=== PATIENT | male | born 1960 | race Caucasian/White ===

== ENCOUNTER 2017-03-09 14:22 | Inpatient (IN) | payer OTHER ==
[2017-03-09 16:04] VITALS: BMI 26.4
--- NOTE | 2017-03-09 17:56 | HP ---
Admission ROS S - [facility] Chief Complaint: I WANT TO GO TO REHAB Allergies/Adverse Reactions: Allergies Allergy/AdvReac Type Severity Reaction Status Date / Time lorazepam AdvReac Severe HEADACHE Verified 03/09/17 16:44 trazodone AdvReac Severe HEADACHE Verified 03/09/17 16:44 Unclassified Drug AdvReac Severe HEADACHE Verified 03/09/17 16:44 boogie Allergy Severe Rash Uncoded 03/09/17 16:44 mendez Allergy Severe Rash Uncoded 03/09/17 16:44 liver Allergy Severe Rash Uncoded 03/09/17 16:44 veal Allergy Severe Rash Uncoded 03/09/17 16:44 History of Present Illness: 56 YEARS OLD MALE WITH LONG HISTORY OF COCAINE NICOTINE DEPENDENCE HAS ASTHMA ACID REFLUX ARTHRITIS OF THE BOTH KNEES, AND DEPRESSION, GASTRIC BY PASS 2016 IS ADMITTED TO REHAB Exam Limitations: No Limitations - Ebola screening Have you traveled outside of the country in the last 21 days: No Have you had contact with anyone from an Ebola affected area: No Have you been sick,other than usual withdrawal symptoms: No Do you have a fever: No - Review of Systems Constitutional: No Symptoms Reported EENT: reports: Other (EYE GLASSES) Respiratory: reports: No Symptoms reported Cardiac: reports: No Symptoms Reported GI: reports: Indigestion : reports: No Symptoms Reported Musculoskeletal: reports: Muscle Weakness (BOTH KNEES) Integumentary: reports: No Symptoms Reported Neuro: reports: No Symptoms reported, Weakness (KNEES) Endocrine: reports: No Symptoms Reported Hematology: reports: No Symptoms Reported Psychiatric: reports: No Sypmtoms Reported, Judgement Intact, Mood/Affect Appropiate, Orientated x3 Other Systems: Reviewed and Negative Patient History - Patient Medical History Hx Anemia: Yes (IRON DEFICIENCY ON IRON ) Hx Asthma: Yes Hx Chronic Obstructive Pulmonary Disease (COPD): No Hx Cancer: No Hx Cardiac Disorders: No Hx Congestive Heart Failure: No Hx Hypertension: No Hx Hypercholesterolemia: No Hx Pacemaker: No HX Cerebrovascular Accident: No Hx Seizures: No Hx Dementia: No Hx Diabetes: No Hx Gastrointestinal Disorders: No Hx Liver Disease: No Hx Genitourinary Disorders: No Hx Sexually Transmitted Disorders: No Hx Renal Disease (ESRD): No Hx Thyroid Disease: No Hx Human Immunodeficiency Virus (HIV): No Hx Hepatitis C: No Hx Depression: Yes Hx Suicide Attempt: No Hx Bipolar Disorder: No Hx Schizophrenia: No - Patient Surgical History Past Surgical History: Yes Hx Neurologic Surgery: No Hx Cataract Extraction: No Hx Cardiac Surgery: No Hx Lung Surgery: No Hx Breast Surgery: No Hx Breast Biopsy: No Hx Abdominal Surgery: Yes (left inguinal hernia repair in 02/06) Hx Appendectomy: No Hx Cholecystectomy: No Hx Genitourinary Surgery: No Hx Orthopedic Surgery: Yes (left knee surgery 1994) Other Surgical History: venous stripping left leg in 2000, RT. Foot surgery 2010 Anesthesia Reaction: No (2016 GASTRIC BYPASS JUL) - PPD History Previous Implant?: Yes Documented Results: Negative w/proof Implanted On Prior R Admission?: Yes Date: 10/01/14 Results: 0mm PPD to be Administered?: Yes - Smoking Cessation Smoking history: Current every day smoker Have you smoked in the past 12 months: Yes Aproximately how many cigarettes per day: 10 Cigars Per Day: 0 Hx Chewing Tobacco Use: No Initiated information on smoking cessation: Yes 'Breaking Loose' booklet given: 03/09/17 - Substance & Tx. History Hx Alcohol Use: Yes Hx Substance Use: Yes Substance Use Type: Alcohol, Cocaine Hx Substance Use Treatment: Yes (08/06/15-08/18/15) - Substances Abused Alcohol Route: Oral Frequency: Daily Amount used: BEER- 1 CASE Age of first use: 13 Date of Last Use: 03/08/17 Crack Route: Smoking Frequency: Daily Amount used: 5 BAGS Age of first use: 27 Date of Last Use: 03/08/17 Family Disease History - Family Disease History Family Disease History: Heart Disease: Father (), Respiratory: Sister ( asthma), Other: Father, Mother (asthma ) Admission Physical Exam [facility] - Vital Signs Vital Signs: Vital Signs - 24 hr 03/09/17 16:02 Temperature 96.7 F L Pulse Rate 54 L Respiratory 18 Rate Blood Pressure 112/66 - Physical General Appearance: Yes: No Apparent Distress, Nourished, Appropriately Dressed HEENTM: Yes: Hearing grossly Normal, Normal ENT Inspection, Normocephalic, Normal Voice Respiratory: Yes: Chest Non-Tender, Lungs Clear, Normal Breath Sounds, No Respiratory Distress, No Accessory Muscle Use Neck: Yes: Supple, Trachea in good position Breast: Yes: Breasts Symetrical Cardiology: Yes: Regular Rhythm, Regular Rate, S1, S2 Abdominal: Yes: Non Tender, Soft, Decreased BS Genitourinary: Yes: Within Normal Limits Back: Yes: Normal Inspection Musculoskeletal: Yes: Gait Steady (CANE + KNEE SLEVES) Extremities: Yes: Non-Tender Neurological: Yes: Fully Oriented, Alert, Normal Mood/Affect, Normal Response Integumentary: Yes: Warm Lymphatic: Yes: Within Normal Limits - Diagnostic (1) Asthma Current Visit: Yes Status: Chronic (2) GERD (gastroesophageal reflux disease) Current Visit: Yes Status: Chronic Qualifiers: Esophagitis presence: without esophagitis Qualified Code(s): K21.9 - Gastro-esophageal reflux disease without esophagitis (3) Nicotine dependence Current Visit: Yes Status: Acute Qualifiers: Nicotine product type: cigarettes Substance use status: in withdrawal Qualified Code(s): F17.213 - Nicotine dependence, cigarettes, with withdrawal (4) Cocaine dependence, uncomplicated Current Visit: Yes Status: Acute (5) Constipation Current Visit: Yes Status: Chronic Qualifiers: Constipation type: slow transit constipation Qualified Code(s): K59.01 - Slow transit constipation (6) Depression Current Visit: Yes Status: Suspected Qualifiers: Depression Type: dysthymia Qualified Code(s): F34.1 - Dysthymic disorder Cleared for Admission [facility] - Detox or Rehab [facility] Level of Care: Observation Bed Detox Regimen/Protocol: Not Applicable Claeared for Rehab Admission: Yes [facility] Breath Alcohol Content Breath Alcohol Content: 0 Urine Drug Screen - Results Drug Screen Negative: No Urine Drug Screen Results: CRYSTAL-Cocaine, TCA-Tricyclic Antidepress
[2017-03-09] MEDS ORDERED: MAGNESIUM CITRATE 300 ML BOTTLE PO PRN (18:03)
[2017-03-09] MEDS ORDERED: diphenhydrAMINE HCL 50 MG CAPSULE PO PRN (18:03)
[2017-03-09] MEDS ORDERED: LOPERAMIDE HCL 2 MG CAPSULE PO PRN (18:03)
[2017-03-09] MEDS ORDERED: MAG HYDROX/AL HYDROX/SIMETH 30 ML UNIT-DOSE CUP PO PRN (18:03)
[2017-03-09] MEDS ORDERED: MENTHOL/PHENOL 1 EACH UD MM PRN (18:03)
[2017-03-09] MEDS ORDERED: MAGNESIUM HYDROX 2400MG/30ML ORAL SUSPENSION 30 ML CUP PO PRN (18:03)
[2017-03-09] MEDS ORDERED: P-EPHED 60MG/TRIPROLIDI 2.5MG TABLET PO PRN (18:03)
[2017-03-09] MEDS ORDERED: guaiFENesin/D-METHORPHAN HB 10 ML UNIT-DOSE CUPS PO PRN (18:03)
[2017-03-09] MEDS ORDERED: ACETAMINOPHEN 325 MG TABLET (FP) PO PRN (18:03)
[2017-03-09] MEDS ORDERED: NICOTINE 14 MG/24 HOURS TOPICAL PATCH TD PRN (18:03)
[2017-03-09] MEDS ORDERED: TUBERCULIN PPD 5 TU/0.1ML VIAL ID ONE (20:16)
[2017-03-09] MEDS: QUEtiapine FUMARATE 300 MG TABLET PO SCH (21:10)
[2017-03-09] MEDS: THIAMINE HCL 100 MG TABLET (FP) PO SCH (21:11)
[2017-03-09] MEDS: hydrOXYzine PAMOATE 50 MG CAPSULE (FP) PO PRN (21:11)
[2017-03-09] MEDS: BUDESONIDE/FORMETEROL FUMARATE 80/4.5 mcg INHALER IH SCH (22:09)
[2017-03-09] MEDS: CLOTRIMAZOLE 1% CREAM 15 GM TUBE TP SCH (22:09)
[2017-03-09 23:52] LABS: URINE APPEARANCE CLOUDY; URINE BILIRUBIN NEGATIVE (NEGATIVE); URINE BLOOD NEGATIVE (NEGATIVE); URINE COLOR AMBER; URINE GLUCOSE (UA) NEGATIVE (NEGATIVE); URINE KETONE NEGATIVE (NEGATIVE); URINE LEUK ESTERASE NEGATIVE (NEGATIVE); URINE NITRITE NEGATIVE (NEGATIVE); URINE UROBILINOGEN NEGATIVE mg/dL (0.2-1.0)
[2017-03-09 23:57] LABS: URINE PROTEIN 1+ (NEGATIVE)
[2017-03-10 00:06] LABS: URINE BACTERIA RARE /hpf (NONE SEEN); URINE HYALINE CAST 13 /lpf; URINE MUCUS MANY; URINE RBC 4 /hpf (0-3); URINE WBC 19 /hpf (3-5)
[2017-03-10] MEDS: ALBUTEROL SO4 6.7 GM HFA INHALER IH PRN ×2 (05:18→21:16)
[2017-03-10] MEDS: PRENATAL VITAMINS W/ FOLIC ACID TABLET (FP) PO SCH (09:47)
[2017-03-10] MEDS: PANTOPRAZOLE 40 MG TABLET (FP) PO SCH (09:47)
[2017-03-10] MEDS: NICOTINE POLACRILEX 2 MG GUM BC PRN ×2 (09:48→21:17)
[2017-03-10] MEDS: DOCUSATE SODIUM 100 MG CAPSULE (FP) PO SCH (09:50)
[2017-03-10] MEDS: BUDESONIDE/FORMETEROL FUMARATE 80/4.5 mcg INHALER IH SCH ×2 (09:51→21:13)
[2017-03-10 10:29] LABS: MCH 30.9 pg (25.7-33.7); MCHC 33.2 g/dl (32.0-35.9); MEAN CELL VOLUME 93.1 fl (80-96); MEAN PLT VOLUME 7.7 fl (7.5-11.1); PLATELET COUNT 193 K/MM3 (134-434); RDW 13.9 % (11.9-15.9); WHITE BLOOD COUNT 3.8 K/mm3 (4.0-10.0)
[2017-03-10 10:56] LABS: ALBUMIN 2.8 g/dl (3.4-5.0); ANION GAP 10 (8-16); CALCIUM 8.3 mg/dL (8.5-10.1); CO2 24 mmol/L (21-32); GLUCOSE,RANDOM 238 mg/dL (74-106)
[2017-03-10 10:59] LABS: ALK PHOS 82 U/L (45-117); BILIRUBIN,TOTAL 0.5 mg/dL (0.2-1.0); CREATININE 1.1 mg/dL (0.7-1.3); SGOT/AST 9 U/L (15-37); SGPT/ALT 12 U/L (12-78); TOT PROT 5.8 g/dl (6.4-8.2)
[2017-03-10] MEDS: CLOTRIMAZOLE 1% CREAM 15 GM TUBE TP SCH ×2 (12:42→21:14)
[2017-03-10] MEDS: QUEtiapine FUMARATE 300 MG TABLET PO SCH (21:13)
[2017-03-10] MEDS: THIAMINE HCL 100 MG TABLET (FP) PO SCH (21:13)
[2017-03-10] MEDS: hydrOXYzine PAMOATE 50 MG CAPSULE (FP) PO PRN (21:16)
[2017-03-11] MEDS: BUDESONIDE/FORMETEROL FUMARATE 80/4.5 mcg INHALER IH SCH ×2 (09:56→21:17)
[2017-03-11] MEDS: PRENATAL VITAMINS W/ FOLIC ACID TABLET (FP) PO SCH (09:56)
[2017-03-11] MEDS: PANTOPRAZOLE 40 MG TABLET (FP) PO SCH (09:56)
[2017-03-11] MEDS: ALBUTEROL SO4 6.7 GM HFA INHALER IH PRN ×2 (09:56→21:14)
[2017-03-11] MEDS: DOCUSATE SODIUM 100 MG CAPSULE (FP) PO SCH (09:56)
[2017-03-11] MEDS: CLOTRIMAZOLE 1% CREAM 15 GM TUBE TP SCH ×2 (09:57→21:17)
[2017-03-11] MEDS: NICOTINE POLACRILEX 2 MG GUM BC PRN ×2 (09:58→21:17)
--- NOTE | 2017-03-11 13:58 | EKG ---
Test Reason : Blood Pressure : / mmHG Vent. Rate : 097 BPM Atrial Rate : 097 BPM P-R Int : 148 ms QRS Dur : 106 ms QT Int : 402 ms P-R-T Axes : 050 -31 021 degrees QTc Int : 510 ms NORMAL SINUS RHYTHM LEFT AXIS DEVIATION PROLONGED QT ABNORMAL ECG NO PREVIOUS ECGS AVAILABLE CLINICAL CORRELATION IS RECOMMENDED Confirmed by CRISTOPHER YAN, MICA ([id number]) on 03/11/2017 1:58:02 PM Referred By: Liudmila Nobles Confirmed By:MICA NICHOLAS MD
[2017-03-11] MEDS: QUEtiapine FUMARATE 300 MG TABLET PO SCH (21:15)
[2017-03-11] MEDS: THIAMINE HCL 100 MG TABLET (FP) PO SCH (21:15)
[2017-03-11] MEDS: hydrOXYzine PAMOATE 50 MG CAPSULE (FP) PO PRN (21:16)
[2017-03-12] MEDS: NICOTINE POLACRILEX 2 MG GUM BC PRN ×3 (06:41→14:21)
[2017-03-12] MEDS: ALBUTEROL SO4 6.7 GM HFA INHALER IH PRN ×3 (06:42→21:21)
[2017-03-12] MEDS: BUDESONIDE/FORMETEROL FUMARATE 80/4.5 mcg INHALER IH SCH ×2 (10:05→21:21)
[2017-03-12] MEDS: CLOTRIMAZOLE 1% CREAM 15 GM TUBE TP SCH ×2 (10:05→21:21)
[2017-03-12] MEDS: DOCUSATE SODIUM 100 MG CAPSULE (FP) PO SCH (10:05)
[2017-03-12] MEDS: PANTOPRAZOLE 40 MG TABLET (FP) PO SCH (10:05)
[2017-03-12] MEDS: PRENATAL VITAMINS W/ FOLIC ACID TABLET (FP) PO SCH (10:05)
--- NOTE | 2017-03-12 11:02 | HP ---
Psychiatrist Admission - Data Date of interview: 03/12/17 Admission source: [facility] Identifying data: This si one of the multiple admissions for this 56 yo H father of 25 yo son,resides alone ,supported by SSD. Medical History: Significant for BA,H/o Gastric bypass surgery in Jul 2016,lost 30 lbs. Psychiatric History: First contact with psychiatrist was in 1998 on recommendation of his substance use counselor.Patient was treated for depressed mood ,snxiety while in the Day rehabilitation program.His first and the only psychistric hosptalization was inabout 6 years ago to [facility] due to severe depression,drug use.Patient was dx with MDD.He started on seroquel (@00,300 up to 600 mg po hs) together with Wellbutrin,Vistaril.Sees psychiatrist at [facility].Current meds:Seroquel 600 mg po hs, Wellbutrin 300 mg po am and [id number] mg po hs. Physical/Sexual Abuse/Trauma History: denies Vital Signs: Vital Signs - 24 hr 03/12/17 03/12/17 03/12/17 00:30 03:27 07:00 Temperature 98.6 F Pulse Rate 85 Respiratory 18 18 18 Rate Blood Pressure 132/88 Allergies/Adverse Reactions: Allergies Allergy/AdvReac Type Severity Reaction Status Date / Time lorazepam AdvReac Severe HEADACHE Verified 03/09/17 16:44 trazodone AdvReac Severe HEADACHE Verified 03/09/17 16:44 Unclassified Drug AdvReac Severe HEADACHE Verified 03/09/17 16:44 boogie Allergy Severe Rash Uncoded 03/09/17 16:44 mendez Allergy Severe Rash Uncoded 03/09/17 16:44 liver Allergy Severe Rash Uncoded 03/09/17 16:44 veal Allergy Severe Rash Uncoded 03/09/17 16:44 Date of last physical exam: 03/09/17 Concur with the findings of this exam: Yes - Substance Abuse/Tx History Hx Alcohol Use: Yes (drinking since 13 yo,heavily since 21 yo) Hx Substance Use: Yes (crack/cocsine since [age] yo) Substance Use Type: Alcohol, Cocaine Hx Substance Use Treatment: Yes (longest time of abctinence 18 months in 2005) - Admission Criteria Previous failed treatment: Yes Poor recovery environment: Yes Comorbidities: Yes Lacks judgement: Yes Mental Status Exam - Mental Status Exam Alert and Oriented to: Time Cognitive Function: Grossly Intact Patient Appearance: Well Groomed Mood: Anxious Affect: Mood Congruent, Labile Patient Behavior: Cooperative Speech Pattern: Clear Voice Loudness: Mildly Loud Thought Process: Goal Oriented Thought Disorder: Not Present Hallucinations: Denies Suicidal Ideation: Denies Homicidal Ideation: Denies Insight/Judgement: Fair Sleep: Fair Appetite: Good Muscle strength/Tone: Normal Gait/Station: Normal Psychiatric Findings - Problem List ([place] 1, 2,3) (1) Nicotine dependence Current Visit: Yes Status: Chronic Qualifiers: Nicotine product type: cigarettes Substance use status: in withdrawal Qualified Code(s): F17.213 - Nicotine dependence, cigarettes, with withdrawal (2) Asthma Current Visit: Yes Status: Chronic (3) GERD (gastroesophageal reflux disease) Current Visit: Yes Status: Chronic Qualifiers: Esophagitis presence: without esophagitis Qualified Code(s): K21.9 - Gastro-esophageal reflux disease without esophagitis (4) Alcohol dependence Current Visit: Yes Status: Chronic (5) Cocaine dependence Current Visit: Yes Status: Chronic (6) MDD (major depressive disorder) Current Visit: Yes Status: Chronic - Initial Treatment Plan Initial Treatment Plan: Wellbutrin 300 mg po am,Seroquel 600 mg po hs,Vistaril 100 mg po hs.Will monitor progress.
[2017-03-12] MEDS: ONDANSETRON *ODT* 4 MG TABLET SL PRN ×2 (14:21→21:23)
[2017-03-12] MEDS: THIAMINE HCL 100 MG TABLET (FP) PO SCH (21:21)
[2017-03-12] MEDS: QUEtiapine FUMARATE 300 MG TABLET PO SCH (21:21)
[2017-03-12] MEDS: hydrOXYzine PAMOATE 50 MG CAPSULE (FP) PO SCH (21:22)
[2017-03-13] MEDS: ALBUTEROL SO4 6.7 GM HFA INHALER IH PRN ×3 (02:08→21:29)
[2017-03-13] MEDS: BUDESONIDE/FORMETEROL FUMARATE 80/4.5 mcg INHALER IH SCH ×2 (10:06→21:27)
[2017-03-13] MEDS: ONDANSETRON *ODT* 4 MG TABLET SL PRN ×2 (10:08→18:16)
[2017-03-13] MEDS: NICOTINE POLACRILEX 2 MG GUM BC PRN ×3 (10:08→21:30)
[2017-03-13] MEDS: CLOTRIMAZOLE 1% CREAM 15 GM TUBE TP SCH ×2 (10:10→21:26)
[2017-03-13] MEDS: PANTOPRAZOLE 40 MG TABLET (FP) PO SCH (10:10)
[2017-03-13] MEDS: PRENATAL VITAMINS W/ FOLIC ACID TABLET (FP) PO SCH (10:10)
[2017-03-13] MEDS: DOCUSATE SODIUM 100 MG CAPSULE (FP) PO SCH (10:11)
[2017-03-13] MEDS: QUEtiapine FUMARATE 300 MG TABLET PO SCH (21:27)
[2017-03-13] MEDS: hydrOXYzine PAMOATE 50 MG CAPSULE (FP) PO SCH (21:27)
[2017-03-13] MEDS: THIAMINE HCL 100 MG TABLET (FP) PO SCH (21:27)
[2017-03-14] MEDS: PANTOPRAZOLE 40 MG TABLET (FP) PO SCH (10:02)
[2017-03-14] MEDS: CLOTRIMAZOLE 1% CREAM 15 GM TUBE TP SCH ×2 (10:02→22:40)
[2017-03-14] MEDS: PRENATAL VITAMINS W/ FOLIC ACID TABLET (FP) PO SCH (10:02)
[2017-03-14] MEDS: BUDESONIDE/FORMETEROL FUMARATE 80/4.5 mcg INHALER IH SCH ×2 (10:02→21:22)
[2017-03-14] MEDS: DOCUSATE SODIUM 100 MG CAPSULE (FP) PO SCH (10:02)
[2017-03-14] MEDS: NICOTINE POLACRILEX 2 MG GUM BC PRN (10:03)
[2017-03-14] MEDS: ALBUTEROL SO4 6.7 GM HFA INHALER IH PRN (10:04)
[2017-03-14] MEDS: THIAMINE HCL 100 MG TABLET (FP) PO SCH (21:19)
[2017-03-14] MEDS: QUEtiapine FUMARATE 300 MG TABLET PO SCH (21:19)
[2017-03-14] MEDS: ONDANSETRON *ODT* 4 MG TABLET SL PRN (21:20)
[2017-03-14] MEDS: hydrOXYzine PAMOATE 50 MG CAPSULE (FP) PO SCH (21:22)
[2017-03-15] MEDS: ALBUTEROL SO4 6.7 GM HFA INHALER IH PRN ×3 (02:02→21:44)
[2017-03-15] MEDS: PANTOPRAZOLE 40 MG TABLET (FP) PO SCH (10:03)
[2017-03-15] MEDS: DOCUSATE SODIUM 100 MG CAPSULE (FP) PO SCH (10:03)
[2017-03-15] MEDS: PRENATAL VITAMINS W/ FOLIC ACID TABLET (FP) PO SCH (10:03)
[2017-03-15] MEDS: CLOTRIMAZOLE 1% CREAM 15 GM TUBE TP SCH ×2 (10:03→21:54)
[2017-03-15] MEDS: BUDESONIDE/FORMETEROL FUMARATE 80/4.5 mcg INHALER IH SCH ×2 (10:04→21:41)
[2017-03-15] MEDS: NICOTINE POLACRILEX 2 MG GUM BC PRN ×2 (10:05→21:44)
[2017-03-15] MEDS: ONDANSETRON *ODT* 4 MG TABLET SL PRN ×2 (12:51→18:13)
[2017-03-15] MEDS: hydrOXYzine PAMOATE 50 MG CAPSULE (FP) PO SCH (21:42)
[2017-03-15] MEDS: QUEtiapine FUMARATE 300 MG TABLET PO SCH (21:42)
[2017-03-15] MEDS: THIAMINE HCL 100 MG TABLET (FP) PO SCH (21:42)
[2017-03-16] MEDS: ALBUTEROL SO4 6.7 GM HFA INHALER IH PRN ×2 (07:19→21:21)
[2017-03-16] MEDS: DOCUSATE SODIUM 100 MG CAPSULE (FP) PO SCH ×2 (09:47→22:03)
[2017-03-16] MEDS: PANTOPRAZOLE 40 MG TABLET (FP) PO SCH (09:48)
[2017-03-16] MEDS: PRENATAL VITAMINS W/ FOLIC ACID TABLET (FP) PO SCH (09:48)
[2017-03-16] MEDS: BUDESONIDE/FORMETEROL FUMARATE 80/4.5 mcg INHALER IH SCH ×2 (09:50→21:21)
[2017-03-16] MEDS: CLOTRIMAZOLE 1% CREAM 15 GM TUBE TP SCH ×2 (10:00→22:04)
[2017-03-16] MEDS: LIDOCAINE 5% TOPICAL PATCH TP SCH (12:34)
[2017-03-16] MEDS: ONDANSETRON *ODT* 4 MG TABLET SL PRN ×2 (12:35→21:23)
[2017-03-16] MEDS: hydrOXYzine PAMOATE 50 MG CAPSULE (FP) PO SCH (21:20)
[2017-03-16] MEDS: THIAMINE HCL 100 MG TABLET (FP) PO SCH (21:20)
[2017-03-16] MEDS: QUEtiapine FUMARATE 300 MG TABLET PO SCH (21:20)
[2017-03-16] MEDS: NICOTINE POLACRILEX 2 MG GUM BC PRN (21:24)
[2017-03-16] MEDS ORDERED: LIDOCAINE PATCH REMOVAL MC SCH (22:00)
[2017-03-16] MEDS: LIDOCAINE PATCH REMOVAL MC SCH (22:04)
[2017-03-17] MEDS: ALBUTEROL SO4 6.7 GM HFA INHALER IH PRN ×2 (06:17→21:05)
[2017-03-17] MEDS: PANTOPRAZOLE 40 MG TABLET (FP) PO SCH (10:16)
[2017-03-17] MEDS: PRENATAL VITAMINS W/ FOLIC ACID TABLET (FP) PO SCH (10:16)
[2017-03-17] MEDS: LIDOCAINE 5% TOPICAL PATCH TP SCH (10:17)
[2017-03-17] MEDS: DOCUSATE SODIUM 100 MG CAPSULE (FP) PO SCH ×2 (10:17→21:14)
[2017-03-17] MEDS: BUDESONIDE/FORMETEROL FUMARATE 80/4.5 mcg INHALER IH SCH ×2 (10:17→21:05)
[2017-03-17] MEDS: CLOTRIMAZOLE 1% CREAM 15 GM TUBE TP SCH ×2 (10:17→21:15)
[2017-03-17] MEDS: NICOTINE POLACRILEX 2 MG GUM BC PRN ×3 (10:18→21:16)
[2017-03-17] MEDS: ONDANSETRON *ODT* 4 MG TABLET SL PRN (21:14)
[2017-03-17] MEDS: QUEtiapine FUMARATE 300 MG TABLET PO SCH (21:14)
[2017-03-17] MEDS: hydrOXYzine PAMOATE 50 MG CAPSULE (FP) PO SCH (21:14)
[2017-03-17] MEDS: LIDOCAINE PATCH REMOVAL MC SCH (21:15)
[2017-03-17] MEDS: THIAMINE HCL 100 MG TABLET (FP) PO SCH (21:15)
[2017-03-18] MEDS: BUDESONIDE/FORMETEROL FUMARATE 80/4.5 mcg INHALER IH SCH ×2 (09:58→21:50)
[2017-03-18] MEDS: PANTOPRAZOLE 40 MG TABLET (FP) PO SCH (09:59)
[2017-03-18] MEDS: ALBUTEROL SO4 6.7 GM HFA INHALER IH PRN ×2 (09:59→21:50)
[2017-03-18] MEDS: PRENATAL VITAMINS W/ FOLIC ACID TABLET (FP) PO SCH (09:59)
[2017-03-18] MEDS: DOCUSATE SODIUM 100 MG CAPSULE (FP) PO SCH ×2 (10:00→21:51)
[2017-03-18] MEDS: CLOTRIMAZOLE 1% CREAM 15 GM TUBE TP SCH ×2 (10:00→21:52)
[2017-03-18] MEDS: LIDOCAINE 5% TOPICAL PATCH TP SCH (10:00)
[2017-03-18] MEDS: NICOTINE POLACRILEX 2 MG GUM BC PRN ×2 (10:02→21:52)
[2017-03-18] MEDS: ONDANSETRON *ODT* 4 MG TABLET SL PRN ×3 (10:02→23:12)
[2017-03-18] MEDS: QUEtiapine FUMARATE 300 MG TABLET PO SCH (21:50)
[2017-03-18] MEDS: THIAMINE HCL 100 MG TABLET (FP) PO SCH (21:51)
[2017-03-18] MEDS: hydrOXYzine PAMOATE 50 MG CAPSULE (FP) PO SCH (21:51)
[2017-03-18] MEDS: LIDOCAINE PATCH REMOVAL MC SCH (21:52)
[2017-03-19] MEDS: BUDESONIDE/FORMETEROL FUMARATE 80/4.5 mcg INHALER IH SCH ×2 (09:52→21:31)
[2017-03-19] MEDS: ALBUTEROL SO4 6.7 GM HFA INHALER IH PRN (09:52)
[2017-03-19] MEDS: DOCUSATE SODIUM 100 MG CAPSULE (FP) PO SCH ×2 (09:52→21:29)
[2017-03-19] MEDS: PANTOPRAZOLE 40 MG TABLET (FP) PO SCH (09:52)
[2017-03-19] MEDS: PRENATAL VITAMINS W/ FOLIC ACID TABLET (FP) PO SCH (09:52)
[2017-03-19] MEDS: ONDANSETRON *ODT* 4 MG TABLET SL PRN ×2 (09:53→21:32)
[2017-03-19] MEDS: LIDOCAINE 5% TOPICAL PATCH TP SCH (09:55)
[2017-03-19] MEDS: NICOTINE POLACRILEX 2 MG GUM BC PRN ×2 (09:57→21:31)
[2017-03-19] MEDS: CLOTRIMAZOLE 1% CREAM 15 GM TUBE TP SCH ×2 (10:32→21:32)
[2017-03-19] MEDS: hydrOXYzine PAMOATE 50 MG CAPSULE (FP) PO SCH (21:29)
[2017-03-19] MEDS: QUEtiapine FUMARATE 300 MG TABLET PO SCH (21:29)
[2017-03-19] MEDS: THIAMINE HCL 100 MG TABLET (FP) PO SCH (21:29)
[2017-03-19] MEDS: LIDOCAINE PATCH REMOVAL MC SCH (21:32)
[2017-03-20] MEDS: PANTOPRAZOLE 40 MG TABLET (FP) PO SCH (10:13)
[2017-03-20] MEDS: PRENATAL VITAMINS W/ FOLIC ACID TABLET (FP) PO SCH (10:13)
[2017-03-20] MEDS: DOCUSATE SODIUM 100 MG CAPSULE (FP) PO SCH ×2 (10:13→21:19)
[2017-03-20] MEDS: ALBUTEROL SO4 6.7 GM HFA INHALER IH PRN ×2 (10:15→21:19)
[2017-03-20] MEDS: BUDESONIDE/FORMETEROL FUMARATE 80/4.5 mcg INHALER IH SCH ×2 (10:15→21:19)
[2017-03-20] MEDS: CLOTRIMAZOLE 1% CREAM 15 GM TUBE TP SCH ×2 (10:16→21:20)
[2017-03-20] MEDS: NICOTINE POLACRILEX 2 MG GUM BC PRN ×2 (10:16→21:22)
[2017-03-20] MEDS: LIDOCAINE 5% TOPICAL PATCH TP SCH (10:17)
[2017-03-20] MEDS: ONDANSETRON *ODT* 4 MG TABLET SL PRN ×2 (11:57→21:21)
[2017-03-20] MEDS: THIAMINE HCL 100 MG TABLET (FP) PO SCH (21:19)
[2017-03-20] MEDS: hydrOXYzine PAMOATE 50 MG CAPSULE (FP) PO SCH (21:19)
[2017-03-20] MEDS: QUEtiapine FUMARATE 300 MG TABLET PO SCH (21:19)
[2017-03-20] MEDS: LIDOCAINE PATCH REMOVAL MC SCH (21:20)
[2017-03-21] MEDS: BUDESONIDE/FORMETEROL FUMARATE 80/4.5 mcg INHALER IH SCH ×2 (09:54→21:28)
[2017-03-21] MEDS: PRENATAL VITAMINS W/ FOLIC ACID TABLET (FP) PO SCH (09:55)
[2017-03-21] MEDS: DOCUSATE SODIUM 100 MG CAPSULE (FP) PO SCH ×2 (09:55→21:26)
[2017-03-21] MEDS: PANTOPRAZOLE 40 MG TABLET (FP) PO SCH (09:55)
[2017-03-21] MEDS: LIDOCAINE 5% TOPICAL PATCH TP SCH (09:56)
[2017-03-21] MEDS: ONDANSETRON *ODT* 4 MG TABLET SL PRN ×2 (09:56→21:28)
[2017-03-21] MEDS: NICOTINE POLACRILEX 2 MG GUM BC PRN ×2 (09:59→21:29)
[2017-03-21] MEDS: CLOTRIMAZOLE 1% CREAM 15 GM TUBE TP SCH ×2 (11:00→21:30)
[2017-03-21] MEDS: LIDOCAINE PATCH REMOVAL MC SCH (21:26)
[2017-03-21] MEDS: QUEtiapine FUMARATE 300 MG TABLET PO SCH (21:26)
[2017-03-21] MEDS: hydrOXYzine PAMOATE 50 MG CAPSULE (FP) PO SCH (21:26)
[2017-03-21] MEDS: THIAMINE HCL 100 MG TABLET (FP) PO SCH (21:27)
[2017-03-21] MEDS: ALBUTEROL SO4 6.7 GM HFA INHALER IH PRN (21:30)
[2017-03-22 06:51] VITALS: BP 126/87; PULSE 78; TEMP 98.2
[2017-03-22] MEDS: PANTOPRAZOLE 40 MG TABLET (FP) PO SCH (09:39)
[2017-03-22] MEDS: BUDESONIDE/FORMETEROL FUMARATE 80/4.5 mcg INHALER IH SCH (09:39)
[2017-03-22] MEDS: PRENATAL VITAMINS W/ FOLIC ACID TABLET (FP) PO SCH (09:39)
[2017-03-22] MEDS: DOCUSATE SODIUM 100 MG CAPSULE (FP) PO SCH (09:39)
[2017-03-22] MEDS: LIDOCAINE 5% TOPICAL PATCH TP SCH (09:40)
[2017-03-22] MEDS: ALBUTEROL SO4 6.7 GM HFA INHALER IH PRN (09:40)
[2017-03-22] MEDS: CLOTRIMAZOLE 1% CREAM 15 GM TUBE TP SCH (09:41)
[2017-03-22] MEDS: ONDANSETRON *ODT* 4 MG TABLET SL PRN (09:42)
--- NOTE | 2017-03-22 11:44 | PN ---
Psychiatric Progress Note Vital Signs: Vital Signs Period Temp Pulse Resp BP Sys/Omalley Pulse Ox Last 24 Hr 98.2 F 78 18-18 126/87 Date of Session: 03/22/17 Chief Complaint:: discharge visit HPI: Patient has addressed alcohol, cocaine dependence comorbid MDD. ROS: BA medically managed. Current Side Effect: No Lab tests ordered: No Lab tests reviewed: Yes Provider note:: Patient has completed today hi streatment an met his goals, will continue to address his issues at [facility]. Patient gained insights into importance of changing attitude for the utilization of supports to prevent relapses. MEdications(Seroquel, Wellbutrin and Vistaril) well tolerated, scripts provided, patient was encouraged to continue maintain abstinence and take medications as directed. Scripts provided , he is stable for dischrage today. Total face to face time:: 35 Mental Status Exam - Mental Status Exam Alert and Oriented to: Time, Place, Person Cognitive Function: Good, Grossly Intact Patient Appearance: Well Groomed Mood: Hopeful Affect: Appropriate, Mood Congruent Patient Behavior: Appropriate, Cooperative Speech Pattern: Clear, Appropriate Voice Loudness: Normal Thought Process: Intact, Goal Oriented Thought Disorder: Not Present Hallucinations: Denies Suicidal Ideation: Denies Homicidal Ideation: Denies Insight/Judgement: Fair Sleep: Fair Appetite: Fair Muscle strength/Tone: Normal Gait/Station: Normal
== END 2017-03-22 09:45 | disposition home or self-care (01) | DRG 772 ==
LOC: YASAS 14:22 → Y5N 17:31
PROVIDERS: ADMIT Psychiatry & Neurology Psychiatry; ATTEND Psychiatry & Neurology Psychiatry
PROC: HZ42ZZZ Group Counseling for Substance Abuse Treatment, Cognitive-Behavioral (ICD-10-PCS; principal; 2017-03-22)
DX: F10.220 Alcohol dependence with intoxication, uncomplicated (principal); F14.20 Cocaine dependence, uncomplicated; F17.213 Nicotine dependence, cigarettes, with withdrawal; F34.1 Dysthymic disorder; F33.9 Major depressive disorder, recurrent, unspecified; J45.909 Unspecified asthma, uncomplicated; K59.01 Slow transit constipation
CPT/HCPCS: 36415; 80053; 81003; 81015; 82947; 85027; 86593; 93005; 93010

== ENCOUNTER 2017-09-21 11:16 | Inpatient (IN) | payer OTHER ==
[2017-09-21 12:01] VITALS: BMI 22.8
--- NOTE | 2017-09-21 15:15 | HP ---
CIWA Score - CIWA Score Nausea/Vomitin (N/V) Muscle Tremors: 4-Moderate,w/Arms Extend Anxiety: 4-Mod. Anxious/Guarded Agitation: 4-Moderately Restless Paroxysmal Sweats: 1-Minimal Palms Moist Orientation: 0-Oriented Tacttile Disturbances: 3-Moderate Itch/Numb/Burn Auditory Disturbances: 0-None Visual Disturbances: 0-None Headache: 0-None Present CIWA-Ar Total Score: 21 Admission ROS [facility] - HPI Chief Complaint: ALCOHOL WITHDRAWAL SX. " MY USE GOT OUT OF HAND AND WAS GETTING SCARY" Allergies/Adverse Reactions: Allergies Allergy/AdvReac Type Severity Reaction Status Date / Time No Known Drug Allergies Allergy Verified 09/21/17 16:34 lorazepam AdvReac Severe HEADACHE Verified 09/21/17 13:48 trazodone AdvReac Severe HEADACHE Verified 09/21/17 13:48 boogie Allergy Severe Rash Uncoded 09/21/17 13:48 mendez Allergy Severe Rash Uncoded 09/21/17 13:48 liver Allergy Severe Rash Uncoded 09/21/17 13:48 veal Allergy Severe Rash Uncoded 09/21/17 13:48 turkey Allergy Unknown Itching Uncoded 09/21/17 13:48 History of Present Illness: 57 Y/O H/MALE WITH A HX OF ALCOHOL AND COCAINE DEPENDENCE SEEKING DETOX TX. PT HAS PREVIOUS TX EPISODES. HX OF DEPRESSION/ANXIETY. REPORTS HE RESIDES AT [facility]-- SERVICES FOR [facility] IN [place]. PT GOES TO IOP AT [facility]. PT STATES HE DECIDED TO GET HELP AND WAS SUPPORTED BY HIS COUNSELOR AT THE [facility] TO COME. Exam Limitations: No Limitations - Ebola screening Have you traveled outside of the country in the last 21 days: No Have you had contact with anyone from an Ebola affected area: No Have you been sick,other than usual withdrawal symptoms: No Do you have a fever: No - Review of Systems Constitutional: Chills, Loss of Appetite, Night Sweats, Changes in sleep, Unintentional Wgt. Loss EENT: reports: Blurred Vision (WEARS GLASSES), Dental Problems (MISSING TEETH) Respiratory: reports: Shortness of Breath (HX ASTHMA), Wheezing Cardiac: reports: No Symptoms Reported GI: reports: Diarrhea, Nausea, Poor Appetite, Poor Fluid Intake, Vomiting : reports: No Symptoms Reported Musculoskeletal: reports: Back Pain, Joint Pain (TORN LIGAMENTS/MENISCUS ON BOTH KNEES), Muscle Pain, Other (HX VARICOSE VEINS AND VASCULAR SX/VEIN STRIPPING LEFT LOWER LEG) Integumentary: reports: Dryness Neuro: reports: Headache, Tremors, Unsteady Gait (USES CANE) Endocrine: reports: No Symptoms Reported Hematology: reports: Anemia Psychiatric: reports: Orientated x3, Anxious, Depressed Other Systems: Reviewed and Negative Patient History - Patient Medical History Hx Anemia: Yes (IRON DEFICIENCY NOT CURRENTLT TAKING IRON PILL) Hx Asthma: Yes (MDI) Hx Chronic Obstructive Pulmonary Disease (COPD): No Hx Cancer: No Hx Cardiac Disorders: No Hx Congestive Heart Failure: No Hx Hypertension: No Hx Hypercholesterolemia: No Hx Pacemaker: No HX Cerebrovascular Accident: No Hx Seizures: No Hx Dementia: No Hx Diabetes: No Hx Gastrointestinal Disorders: Yes (OMEPRAZOLE 40 MG DAILY) Hx Liver Disease: No Hx Genitourinary Disorders: No Hx Sexually Transmitted Disorders: No (DENIES) Hx Renal Disease (ESRD): No Hx Thyroid Disease: No Hx Human Immunodeficiency Virus (HIV): No (NEGATIVE HX) Hx Hepatitis C: No (DENIES) Hx Depression: Yes (ANXIETY- ON MEDS) Hx Suicide Attempt: No (DENIES PREVIOUS OR PRESENT S/H/I TODAY) Hx Bipolar Disorder: Yes Hx Schizophrenia: No - Patient Surgical History Past Surgical History: Yes Hx Neurologic Surgery: No Hx Cataract Extraction: No Hx Cardiac Surgery: No Hx Lung Surgery: No Hx Breast Surgery: No Hx Breast Biopsy: No Hx Abdominal Surgery: Yes (left inguinal hernia repair in 02/06) Hx Appendectomy: No Hx Cholecystectomy: No Hx Genitourinary Surgery: No Hx Orthopedic Surgery: Yes (left knee surgery 1994) Other Surgical History: venous stripping left leg in 2000, RT. Foot surgery 2010 Anesthesia Reaction: No (2016 GASTRIC BYPASS JUL) - PPD History Previous Implant?: Yes Documented Results: Negative w/proof Implanted On Prior R Admission?: Yes Date: 03/11/17 Results: 0mm PPD to be Administered?: No - Reproductive History Patient is a Female of Child Bearing Age (11 -55 yrs old): No (MALE) - Smoking Cessation Smoking history: Current every day smoker Have you smoked in the past 12 months: Yes Aproximately how many cigarettes per day: 10 Cigars Per Day: 0 Hx Chewing Tobacco Use: No Initiated information on smoking cessation: Yes 'Breaking Loose' booklet given: 09/21/17 - Substance & Tx. History Hx Alcohol Use: Yes (BEER/LIQUOR) Hx Substance Use: Yes (COCAINE) Substance Use Type: Alcohol, Cocaine Hx Substance Use Treatment: Yes (LAST TX AT [facility] ) - Substances Abused Alcohol Route: Oral Frequency: Daily Amount used: beer(2-6pks(12oz)/vodka(2-3 nips) Age of first use: 13 Date of Last Use: 09/20/17 Crack Route: Smoking Frequency: Daily Amount used: $50-100 Age of first use: 23 Date of Last Use: 09/20/17 Family Disease History - Family Disease History Family Disease History: Heart Disease: Father (), Respiratory: Sister ( asthma), Other: Father, Mother (asthma ) Admission Physical Exam [facility] - Vital Signs Vital Signs: Vital Signs - 24 hr 09/21/17 12:00 Temperature 97.1 F L Pulse Rate 90 Respiratory 18 Rate Blood Pressure 125/88 - Physical General Appearance: Yes: Moderate Distress, Irritable, Anxious HEENTM: Yes: EOMI, Normocephalic, CARINE, Pharynx Normal Respiratory: Yes: Chest Non-Tender, Lungs Clear, Normal Breath Sounds, No Respiratory Distress Neck: Yes: No masses,lesions,Nodules, Supple, Trachea in good position Breast: Yes: Breast Exam Deferred Cardiology: Yes: Regular Rhythm, Regular Rate, S1, S2 Abdominal: Yes: Normal Bowel Sounds, Non Tender, Soft Genitourinary: Yes: Other (N/C) Back: Yes: Within Normal Limits Musculoskeletal: Yes: full range of Motion, Gait Steady Extremities: Yes: Normal Range of Motion, Non-Tender Neurological: Yes: mail order clerk II-XII NML intact, Fully Oriented, Alert Integumentary: Yes: Warm Lymphatic: Yes: Within Normal Limits - Diagnostic (1) Alcohol dependence with uncomplicated withdrawal Current Visit: Yes Status: Acute (2) Cocaine dependence, uncomplicated Current Visit: Yes Status: Acute (3) Nicotine dependence Current Visit: Yes Status: Acute Qualifiers: Nicotine product type: cigarettes Substance use status: in withdrawal Qualified Code(s): F17.213 - Nicotine dependence, cigarettes, with withdrawal (4) Asthma Current Visit: Yes Status: Chronic (5) GERD (gastroesophageal reflux disease) Current Visit: Yes Status: Chronic Qualifiers: Esophagitis presence: without esophagitis Qualified Code(s): K21.9 - Gastro -esophageal reflux disease without esophagitis (6) Osteoarthritis of knees, bilateral Current Visit: Yes Status: Chronic Cleared for Admission [facility] - Detox or Rehab [facility] Level of Care: Medically Managed Detox Regimen/Protocol: Librium S Breath Alcohol Content Breath Alcohol Content: 0 Urine Drug Screen - Results Drug Screen Negative: No Urine Drug Screen Results: CRYSTAL-Cocaine, BZO-Benzodiazepines, TCA-Tricyclic Antidepress
[2017-09-21] MEDS ORDERED: MAGNESIUM HYDROX 2400MG/30ML ORAL SUSPENSION 30 ML CUP PO PRN (15:43)
[2017-09-21] MEDS ORDERED: MAG HYDROX/AL HYDROX/SIMETH 30 ML UNIT-DOSE CUP PO PRN (15:43)
[2017-09-21] MEDS ORDERED: IBUPROFEN 400 MG TABLET (FP) PO PRN (15:43)
[2017-09-21] MEDS ORDERED: MENTHOL/PHENOL 1 EACH UD MM PRN (15:43)
[2017-09-21] MEDS ORDERED: P-EPHED 60MG/TRIPROLIDI 2.5MG TABLET PO PRN (15:43)
[2017-09-21] MEDS ORDERED: LOPERAMIDE HCL 2 MG CAPSULE PO PRN (15:43)
[2017-09-21] MEDS ORDERED: guaiFENesin/D-METHORPHAN HB 10 ML UNIT-DOSE CUPS PO PRN (15:43)
[2017-09-21] MEDS ORDERED: hydrOXYzine PAMOATE 50 MG CAPSULE (FP) PO PRN (15:43)
[2017-09-21] MEDS ORDERED: MAGNESIUM CITRATE 300 ML BOTTLE PO PRN (15:43)
[2017-09-21] MEDS ORDERED: NICOTINE POLACRILEX 2 MG GUM BC PRN (15:43)
[2017-09-21] MEDS ORDERED: ACETAMINOPHEN 325 MG TABLET (FP) PO PRN (15:43)
[2017-09-21] MEDS ORDERED: LIDOCAINE HCL 5% TOP OINTMENT 50 GM TUBE TP PRN (15:51)
[2017-09-21] MEDS ORDERED: ONDANSETRON *ODT* 4 MG TABLET SL PRN (15:51)
[2017-09-21] MEDS: chlordiazePOXIDE HCL 25 MG CAPSULE PO SCH ×2 (17:25→22:23)
[2017-09-21] MEDS: NICOTINE 14 MG/24 HOURS TOPICAL PATCH TD SCH (17:48)
--- NOTE | 2017-09-21 18:18 | PN ---
ABDIRAHMAN Progress Note Note: Psychiatric Nurse practitioner note: Pt. requesting his scheduled dose of seroquel 600mg qhs. EKG completed and patient noted to have a prolong QT with a qtc of 500. Pt. made aware that Seroquel will not be ordered at this time. JONNATHAN Ruiz notified and made aware. Case discussed with Psychiatrist Dr. Santo. Ambien 10mg qhs ordered for insomnia. Verbal consent given. Benefits and side effects (sleep walking) discussed. Will continue to monitor.
--- NOTE | 2017-09-21 19:01 | PN ---
[facility] Progress Note Note: Patient evaluated by the bedside re: EKG Patient reports difficulty sleeping because he is currently not receiving Seroquel. Reports body aches and attributes pain to withdrawal. Patient denies SOB, chest pain, dyspnea, paresthesia Last Vital Signs Temp Pulse Resp BP Pulse Ox 97.1 F L 90 18 125/88 09/21/17 12:00 09/21/17 12:00 09/21/17 12:00 09/21/17 12:00 Patient AOx3, in no apparent distress, laying in bed. Normal heart rate, rhythm Lungs clear throughout, no adventitious breath sounds No skin changes Increase fluids Repeat EKG Continue to monitor Continue detox Labs pending
[2017-09-21 21:53] LABS: URINE APPEARANCE CLOUDY; URINE BLOOD NEGATIVE (NEGATIVE); URINE COLOR AMBER; URINE GLUCOSE (UA) NEGATIVE (NEGATIVE); URINE KETONE TRACE (NEGATIVE); URINE LEUK ESTERASE NEGATIVE (NEGATIVE); URINE NITRITE NEGATIVE (NEGATIVE); URINE PROTEIN 2+ (NEGATIVE); URINE UROBILINOGEN 4.0 E.U/dl mg/dL (0.2-1.0)
[2017-09-21 22:22] LABS: GRANULAR CASTS 128 /lpf; URINE HYALINE CAST 44 /lpf; URINE MUCUS MANY
[2017-09-21] MEDS: ZOLPIDEM TARTRATE 10 MG TABLET (PARK CARE ONLY) PO PRN (22:23)
[2017-09-21] MEDS: DOCUSATE SODIUM 100 MG CAPSULE (FP) PO SCH (22:23)
[2017-09-21] MEDS: CYCLOBENZAPRINE HCL 10 MG TABLET (FP) PO SCH (22:23)
[2017-09-21] MEDS: CLOTRIMAZOLE 1% CREAM 15 GM TUBE TP SCH (22:26)
[2017-09-21] MEDS: THIAMINE HCL 100 MG TABLET (FP) PO SCH (22:28)
[2017-09-21] MEDS: ALBUTEROL SO4 18 GM HFA INHALER IH PRN (22:28)
[2017-09-22] MEDS: chlordiazePOXIDE HCL 25 MG CAPSULE PO SCH ×4 (04:48→22:08)
[2017-09-22] MEDS: CYCLOBENZAPRINE HCL 10 MG TABLET (FP) PO SCH ×3 (05:59→22:09)
[2017-09-22 09:59] LABS: HEMATOCRIT 41.1 % (35.4-49); HEMOGLOBIN 13.3 GM/dL (11.7-16.9); MCH 30.2 pg (25.7-33.7); MCHC 32.4 g/dl (32.0-35.9); MEAN PLT VOLUME 7.9 fl (7.5-11.1); PLATELET COUNT 288 K/MM3 (134-434); RBC 4.42 M/mm3 (4.00-5.60); RDW 13.8 % (11.9-15.9); WHITE BLOOD COUNT 5.2 K/mm3 (4.0-10.0)
[2017-09-22 10:05] LABS: ALBUMIN 3.8 g/dl (3.4-5.0); CHLORIDE 105 mmol/L (98-107); POTASSIUM 3.6 mmol/L (3.5-5.1); SODIUM 138 mmol/L (136-145)
[2017-09-22 10:08] LABS: ALK PHOS 93 U/L (45-117); ANION GAP 8 (8-16); BILIRUBIN,TOTAL 0.6 mg/dL (0.2-1.0); BLOOD UREA NITROGEN 22 mg/dL (7-18); CALCIUM 8.4 mg/dL (8.5-10.1); CO2 25 mmol/L (21-32); CREATININE 1.7 mg/dL (0.7-1.3); GLUCOSE,RANDOM 117 mg/dL (74-106); SGOT/AST 16 U/L (15-37); SGPT/ALT 11 U/L (12-78); TOT PROT 7.1 g/dl (6.4-8.2)
[2017-09-22] MEDS: CLOTRIMAZOLE 1% CREAM 15 GM TUBE TP SCH ×2 (10:42→22:11)
[2017-09-22] MEDS: DOCUSATE SODIUM 100 MG CAPSULE (FP) PO SCH ×2 (10:43→22:09)
[2017-09-22] MEDS: ALBUTEROL SO4 18 GM HFA INHALER IH PRN ×2 (10:43→22:09)
[2017-09-22] MEDS: PRENATAL VITAMINS W/ FOLIC ACID TABLET (FP) PO SCH (10:43)
[2017-09-22] MEDS: NICOTINE 14 MG/24 HOURS TOPICAL PATCH TD SCH (10:43)
--- NOTE | 2017-09-22 11:09 | PN ---
S CIWA - CIWA Score Nausea/Vomitin Muscle Tremors: 3 Anxiety: 5 Agitation: 4-Moderately Restless Paroxysmal Sweats: 2 Orientation: 0-Oriented Tacttile Disturbances: 0-None Auditory Disturbances: 0-None Visual Disturbances: 0-None Headache: 0-None Present CIWA-Ar Total Score: 19 S Progress Note (SOAP) Subjective: Anxious Sleep disturbance tremulous Objective: 09/22/17 11:05 anxious A & O x 3 Ambulates with a cane Vital Signs Temperature 97.9 F 09/22/17 10:00 Pulse Rate 81 09/22/17 10:00 Respiratory Rate 20 09/22/17 10:00 Blood Pressure 100/68 09/22/17 10:00 O2 Sat by Pulse Oximetry (%) Laboratory Last Values WBC 5.2 K/mm3 (4.0-10.0) D 09/22/17 06:20 RBC 4.42 M/mm3 (4.00-5.60) 09/22/17 06:20 Hgb 13.3 GM/dL (11.7-16.9) 09/22/17 06:20 Hct 41.1 % (35.4-49) 09/22/17 06:20 MCV 93.0 fl (80-96) 09/22/17 06:20 MCH 30.2 pg (25.7-33.7) 09/22/17 06:20 MCHC 32.4 g/dl (32.0-35.9) 09/22/17 06:20 RDW 13.8 % (11.9-15.9) 09/22/17 06:20 Plt Count 288 K/MM3 (134-434) D 09/22/17 06:20 MPV 7.9 fl (7.5-11.1) 09/22/17 06:20 Sodium 138 mmol/L (136-145) 09/22/17 06:20 Potassium 3.6 mmol/L (3.5-5.1) 09/22/17 06:20 Chloride 105 mmol/L (98-107) 09/22/17 06:20 Carbon Dioxide 25 mmol/L (21-32) 09/22/17 06:20 Anion Gap 8 (8-16) 09/22/17 06:20 BUN 22 mg/dL (7-18) H D 09/22/17 06:20 Creatinine 1.7 mg/dL (0.7-1.3) H D 09/22/17 06:20 Creat Clearance w eGFR 42.05 (>60) 09/22/17 06:20 Random Glucose 117 mg/dL (74-106) H D 09/22/17 06:20 Calcium 8.4 mg/dL (8.5-10.1) L 09/22/17 06:20 Total Bilirubin 0.6 mg/dL (0.2-1.0) 09/22/17 06:20 AST 16 U/L (15-37) D 09/22/17 06:20 ALT 11 U/L (12-78) L 09/22/17 06:20 Alkaline Phosphatase 93 U/L (45-117) 09/22/17 06:20 Total Protein 7.1 g/dl (6.4-8.2) D 09/22/17 06:20 Albumin 3.8 g/dl (3.4-5.0) D 09/22/17 06:20 Urine Color Mimi 09/21/17 21:00 Urine Appearance Cloudy 09/21/17 21:00 Urine pH 5.0 (5.0-8.0) 09/21/17 21:00 Ur Specific [place] 1.029 (1.001-1.035) 09/21/17 21:00 Urine Protein 2+ (NEGATIVE) H 09/21/17 21:00 Urine Glucose (UA) Negative (NEGATIVE) 09/21/17 21:00 Urine Ketones Trace (NEGATIVE) H 09/21/17 21:00 Urine Blood Negative (NEGATIVE) 09/21/17 21:00 Urine Nitrite Negative (NEGATIVE) 09/21/17 21:00 Urine Bilirubin 2.0 (NEGATIVE) 09/21/17 21:00 Urine Urobilinogen 4.0 e.u/dl mg/dL (0.2-1.0) 09/21/17 21:00 Ur Leukocyte Esterase Negative (NEGATIVE) 09/21/17 21:00 Urine WBC (Auto) 13 /hpf (3-5) 09/21/17 21:00 Urine RBC (Auto) 3 /hpf (0-3) 09/21/17 21:00 Hyaline Casts 44 /lpf 09/21/17 21:00 Granular Casts 128 /lpf 02/23/18 21:00 Urine Mucus Many 09/21/17 21:00 labs noted Assessment: 09/22/17 11:07 Withdrawal sx anxiety Plan: continue detox continue hydration Vistaril prn for anxiety zofran for nausea
[2017-09-22] MEDS ORDERED: ONDANSETRON *ODT* 4 MG TABLET SL PRN (12:06)
[2017-09-22] MEDS: PANTOPRAZOLE 40 MG TABLET (FP) PO SCH (12:56)
[2017-09-22] MEDS: chlordiazePOXIDE HCL 25 MG CAPSULE PO PRN (14:32)
[2017-09-22] MEDS: hydrOXYzine PAMOATE 50 MG CAPSULE (FP) PO PRN (15:24)
--- NOTE | 2017-09-22 17:18 | CONSULT ---
[facility] Psychiatric Consult - Data Date of interview: 09/22/17 Admission source: [facility] Identifying data: This is one of multiple admissions to [facility] for this 57 y/ o male seeking detox treatment on for alcohol and cocaine ( crack) dependence.Patient is single,a father of one,domiciled,unemployed ( disabled) and supported on SSI benefits. Substance Abuse History: Discussed with the patient in this interview.Mr Sr confirmed this section of [facility] report on his addictions as accurate. Details as follows : Smoking history: Current every day smoker. Have you smoked in the past 12 months: Yes. Aproximately how many cigarettes per day: 10. Cigars Per Day: 0. Hx Chewing Tobacco Use: No. Initiated information on smoking cessation: Yes. 'Breaking Loose' booklet given: 09/21/17. - Substance & Tx. History. Hx Alcohol Use: Yes (BEER/LIQUOR). Hx Substance Use: Yes ( COCAINE). Substance Use Type: Alcohol, Cocaine. Hx Substance Use Treatment: Yes (LAST TX AT [facility] ). - Substances Abused. Alcohol. Route: Oral. Frequency: Daily. Amount used: beer(2-6pks(12oz)/vodka(2-3 nips) . Age of first use: 13. Date of Last Use: 09/20/17. Crack. Route: Smoking. Frequency: Daily. Amount used: $50-100. Age of first use: 23. Date of Last Use: 09/20/17 Medical History: Bronchial asthma,GERD,osteoarthritis (both knees),anemia, history of multiple surgeries (repair of torn rotator cuff in both shoulders, left inguinal herniorraphy,gastric bypass,venous stripping in left leg).Patient ambulates with a cane. Psychiatric History: Patient reports a history of a psychiatric hospitalization 10 years ago ([facility] in [place]).Diagnosed at the time with MDD and revised,years later,for Bipolar Disorder (2013).Mr Sr declares that he currently gets his psychiatric outpatient services at the [facility] [place] [facility].Maintained on a regimen of seroquel 600 mg po hs + wellbutrin XL 300 mg po daily + vistaril 100 mg po (self -report).Patient claims total adherence to [facility] care.Denies history of suicide attempts. Physical/Sexual Abuse/Trauma History: Not discussed in this interview.Patient declines. Additional Comment: Urine Drug Screen Results: CRYSTAL-Cocaine, BZO-Benzodiazepines , TCA-Tricyclic Antidepressant.Noted. Mental Status Exam - Mental Status Exam Alert and Oriented to: Time, Place, Person Cognitive Function: Good Patient Appearance: Well Groomed Mood: Nervous, Anxious Affect: Mood Congruent, Constricted Patient Behavior: Fatigued, Appropriate, Cooperative Speech Pattern: Clear, Appropriate Voice Loudness: Normal Thought Process: Intact, Goal Oriented Thought Disorder: Not Present Hallucinations: Denies Suicidal Ideation: Denies Homicidal Ideation: Denies Insight/Judgement: Fair Sleep: Poorly, Difficulty falling asleep Appetite: Good Muscle strength/Tone: Normal Gait/Station: Other (walks with cane) Psychiatric Findings - Problem List ([place] 1, 2,3) (1) Alcohol dependence Current Visit: Yes Status: Chronic (2) Cocaine dependence, uncomplicated Current Visit: Yes Status: Acute (3) Nicotine dependence Current Visit: Yes Status: Acute Qualifiers: Nicotine product type: cigarettes Substance use status: in withdrawal Qualified Code(s): F17.213 - Nicotine dependence, cigarettes, with withdrawal (4) Drug-induced mood disorder Current Visit: Yes Status: Acute (5) MDD (major depressive disorder) Current Visit: Yes Status: Chronic (6) Insomnia Current Visit: Yes Status: Acute - Initial Treatment Plan Initial Treatment Plan: Records reviewed.Psychoeducation.Sleep hygiene.Falls precautions.Medications : wellbutrin XL 300 mg po daily + seroquel 400 mg po hs (to be titrated back to 600 mg/hs if no oversedation in next 24-48 hours) .Prolonged QT in old EKG (2016). Repeated this AM : QT = 418 and Qtc = 457.Side effects/benefits of both drugs are discussed with the patient.Mr Sr reports these medications as well tolerated and effective.He insists on their inclusion in his current regime of treatment.Observation.
[2017-09-22] MEDS ORDERED: QUEtiapine FUMARATE 400 MG TABLET PO SCH (22:00)
[2017-09-22] MEDS: ZOLPIDEM TARTRATE 10 MG TABLET (PARK CARE ONLY) PO PRN (22:09)
[2017-09-22] MEDS: LIDOCAINE PATCH REMOVAL MC SCH (22:10)
[2017-09-22] MEDS: THIAMINE HCL 100 MG TABLET (FP) PO SCH (22:10)
--- NOTE | 2017-09-22 22:51 | EKG ---
Test Reason : Blood Pressure : / mmHG Vent. Rate : 072 BPM Atrial Rate : 072 BPM P-R Int : 160 ms QRS Dur : 116 ms QT Int : 418 ms P-R-T Axes : 033 -15 010 degrees QTc Int : 457 ms NORMAL SINUS RHYTHM NORMAL ECG WHEN COMPARED WITH ECG OF 21-SEP-2017 17:39, NO SIGNIFICANT CHANGE IS FOUND Confirmed by MD VARGAS, GOPI ([id number]) on 09/22/2017 10:50:39 PM Referred By: Confirmed By:GOPI KAYE MD
[2017-09-23] MEDS: CYCLOBENZAPRINE HCL 10 MG TABLET (FP) PO SCH ×3 (06:00→22:16)
[2017-09-23] MEDS: chlordiazePOXIDE HCL 25 MG CAPSULE PO SCH ×2 (06:01→11:22)
--- NOTE | 2017-09-23 10:59 | PN ---
S CIWA - CIWA Score Nausea/Vomitin-Mild Nausea/No Vomiting Muscle Tremors: 4-Moderate,w/Arms Extend Anxiety: 4-Mod. Anxious/Guarded Agitation: 4-Moderately Restless Paroxysmal Sweats: 1-Minimal Palms Moist Orientation: 0-Oriented Tacttile Disturbances: 1-Very Mild Itch/Numbness Auditory Disturbances: 0-None Visual Disturbances: 0-None Headache: 2-Mild CIWA-Ar Total Score: 17 [facility] Progress Note (SOAP) Subjective: sweat tremor anxiety headache cane for ambulation Objective: 09/23/17 10:58 Vital Signs Temperature 96 F L 09/23/17 10:00 Pulse Rate 76 09/23/17 10:00 Respiratory Rate 18 09/23/17 10:00 Blood Pressure 114/67 09/23/17 10:00 O2 Sat by Pulse Oximetry (%) Laboratory Last Values WBC 5.2 K/mm3 (4.0-10.0) D 09/22/17 06:20 RBC 4.42 M/mm3 (4.00-5.60) 09/22/17 06:20 Hgb 13.3 GM/dL (11.7-16.9) 09/22/17 06:20 Hct 41.1 % (35.4-49) 09/22/17 06:20 MCV 93.0 fl (80-96) 09/22/17 06:20 MCH 30.2 pg (25.7-33.7) 09/22/17 06:20 MCHC 32.4 g/dl (32.0-35.9) 09/22/17 06:20 RDW 13.8 % (11.9-15.9) 09/22/17 06:20 Plt Count 288 K/MM3 (134-434) D 09/22/17 06:20 MPV 7.9 fl (7.5-11.1) 09/22/17 06:20 Sodium 138 mmol/L (136-145) 09/22/17 06:20 Potassium 3.6 mmol/L (3.5-5.1) 09/22/17 06:20 Chloride 105 mmol/L (98-107) 09/22/17 06:20 Carbon Dioxide 25 mmol/L (21-32) 09/22/17 06:20 Anion Gap 8 (8-16) 09/22/17 06:20 BUN 22 mg/dL (7-18) H D 09/22/17 06:20 Creatinine 1.7 mg/dL (0.7-1.3) H D 09/22/17 06:20 Creat Clearance w eGFR 42.05 (>60) 09/22/17 06:20 Random Glucose 117 mg/dL (74-106) H D 09/22/17 06:20 Calcium 8.4 mg/dL (8.5-10.1) L 09/22/17 06:20 Total Bilirubin 0.6 mg/dL (0.2-1.0) 09/22/17 06:20 AST 16 U/L (15-37) D 09/22/17 06:20 ALT 11 U/L (12-78) L 09/22/17 06:20 Alkaline Phosphatase 93 U/L (45-117) 09/22/17 06:20 Total Protein 7.1 g/dl (6.4-8.2) D 09/22/17 06:20 Albumin 3.8 g/dl (3.4-5.0) D 09/22/17 06:20 Urine Color Mimi 09/21/17 21:00 Urine Appearance Cloudy 09/21/17 21:00 Urine pH 5.0 (5.0-8.0) 09/21/17 21:00 Ur Specific [place] 1.029 (1.001-1.035) 09/21/17 21:00 Urine Protein 2+ (NEGATIVE) H 09/21/17 21:00 Urine Glucose (UA) Negative (NEGATIVE) 09/21/17 21:00 Urine Ketones Trace (NEGATIVE) H 09/21/17 21:00 Urine Blood Negative (NEGATIVE) 09/21/17 21:00 Urine Nitrite Negative (NEGATIVE) 09/21/17 21:00 Urine Bilirubin 2.0 (NEGATIVE) 09/21/17 21:00 Urine Urobilinogen 4.0 e.u/dl mg/dL (0.2-1.0) 09/21/17 21:00 Ur Leukocyte Esterase Negative (NEGATIVE) 09/21/17 21:00 Urine WBC (Auto) 13 /hpf (3-5) 09/21/17 21:00 Urine RBC (Auto) 3 /hpf (0-3) 09/21/17 21:00 Hyaline Casts 44 /lpf 09/21/17 21:00 Granular Casts 128 /lpf 09/21/17 21:00 Urine Mucus Many 09/21/17 21:00 RPR Titer Nonreactive (NONREACTIVE) 09/22/17 06:20 lab noted Assessment: 09/23/17 10:58 withdrawal sx Plan: continue detox
[2017-09-23] MEDS: DOCUSATE SODIUM 100 MG CAPSULE (FP) PO SCH ×2 (11:22→22:16)
[2017-09-23] MEDS: PANTOPRAZOLE 40 MG TABLET (FP) PO SCH (11:22)
[2017-09-23] MEDS: PRENATAL VITAMINS W/ FOLIC ACID TABLET (FP) PO SCH (11:22)
[2017-09-23] MEDS: CLOTRIMAZOLE 1% CREAM 15 GM TUBE TP SCH ×2 (11:23→22:19)
[2017-09-23] MEDS: NICOTINE 14 MG/24 HOURS TOPICAL PATCH TD SCH (11:23)
[2017-09-23] MEDS: LIDOCAINE 5% TOPICAL PATCH TP SCH (11:25)
[2017-09-23] MEDS: hydrOXYzine PAMOATE 50 MG CAPSULE (FP) PO PRN ×2 (12:24→16:48)
[2017-09-23] MEDS: chlordiazePOXIDE 5 MG CAPSULE PO SCH ×2 (16:48→22:16)
--- NOTE | 2017-09-23 19:13 | PN ---
ABDIRAHMAN Progress Note Note: Psychiatric nurse practitioner note: Office Machine Mechanic received called from RN concerning patient's seroquel dose. Dr. Santo note read and appreciated. EGK was reordered on 09/22/17 after patient had a QTC= 500 on 09/21/17. EKG on 09/22/17 was the following: QT= 418, FLB=255. Seroquel 500mg qhs ordered for tonight with plan to titrate dose to Seroquel 600mg on if patient is able to tolerate dose and no oversedation is noted. Will continue to monitor.
[2017-09-23] MEDS ORDERED: QUEtiapine FUMARATE 100 MG TABLET (FP) PO SCH (22:00)
[2017-09-23] MEDS: BUDESONIDE/FORMETEROL FUMARATE 160/4.5 mcg INHALER IH SCH (22:14)
[2017-09-23] MEDS: ALBUTEROL SO4 18 GM HFA INHALER IH PRN (22:15)
[2017-09-23] MEDS: ZOLPIDEM TARTRATE 10 MG TABLET (PARK CARE ONLY) PO PRN (22:16)
[2017-09-23] MEDS: THIAMINE HCL 100 MG TABLET (FP) PO SCH (22:16)
[2017-09-23] MEDS: LIDOCAINE PATCH REMOVAL MC SCH (23:51)
[2017-09-24] MEDS: chlordiazePOXIDE 5 MG CAPSULE PO SCH ×2 (06:00→10:50)
[2017-09-24] MEDS: CYCLOBENZAPRINE HCL 10 MG TABLET (FP) PO SCH ×3 (06:01→22:12)
--- NOTE | 2017-09-24 09:57 | PN ---
Psychiatric Progress Note Vital Signs: Vital Signs Period Temp Pulse Resp BP Sys/Omalley Pulse Ox Last 24 Hr 96 F-98.1 F 70-101 16-20 114-151/66-103 Date of Session: 09/24/17 Chief Complaint:: " Can i get my seroquel 600mg" HPI: Pt. admitted to for alcohol, cocaine, benzodiazepine dependence. ROS: Unremarkable Current Medications: Active Medications Generic Name Dose Route Start Last Admin Trade Name Freq PRN Reason Stop Dose Admin Acetaminophen 650 mg 09/21/17 15:43 Tylenol - PO Q4H PRN FEVER Al Hydroxide/Mg Hydroxide 30 ml 09/21/17 15:43 09/21/17 22:54 Mylanta Oral Suspension - PO 30 ml Q6H PRN Administration DYSPEPSIA Albuterol Sulfate 2 puff 09/21/17 15:51 09/23/17 22:15 Ventolin Hfa Inhaler - IH 2 inh Q4H PRN Administration SHORT OF BREATH/WHEEZING Budesonide/Formoterol Fumarate 1 puff 09/23/17 22:00 09/23/17 22:14 Symbicort 160/4.5mcg - IH 1 puff BID CHANG Administration Bupropion HCl 300 mg 09/23/17 10:00 09/23/17 11:22 Wellbutrin Xl - PO 300 mg DAILY CHANG Administration Chlordiazepoxide HCl 15 mg 09/23/17 17:00 09/24/17 06:00 Librium - PO 09/24/17 11:01 15 mg [id number] CHANG Administration Chlordiazepoxide HCl 25 mg 09/21/17 15:43 09/22/17 14:32 Librium - PO 09/24/17 15:42 25 mg Q4H PRN Administration WITHDRAWAL(CONT SUBST) Chlordiazepoxide HCl 10 mg 09/24/17 17:00 Librium - PO 09/25/17 11:01 N1P-SEC CHANG Clotrimazole 1 applic 09/21/17 22:00 09/23/17 22:19 Lotrimin 1% Cream - TP Not Given BID CHANG Cyclobenzaprine HCl 10 mg 09/21/17 22:00 09/24/17 06:01 Flexeril - PO 10 mg TID CHANG Administration Docusate Sodium 100 mg 09/21/17 22:00 09/23/17 22:16 Colace - PO 100 mg BID CHANG Administration Eucalyptus/Menthol/Phenol/Sorbitol 1 each 09/21/17 15:43 Cepastat Lozenge - MM Q4H PRN SORE THROAT Guaifenesin 10 ml 09/21/17 15:43 Robitussin Dm - PO Q6H PRN COUGH Hydroxyzine Pamoate 50 mg 09/22/17 10:54 09/23/17 16:48 Vistaril - PO 50 mg Q6H PRN Administration FOR ITCHING Ibuprofen 400 mg 09/21/17 15:43 09/22/17 17:51 Motrin - PO 400 mg Q6H PRN Administration PAIN LEVEL 4-6 Lidocaine 1 patch 09/23/17 10:00 09/23/17 11:25 Lidoderm Patch - TP 1 patch DAILY CHANG Administration Lidocaine HCl 1 applic 09/21/17 15:51 09/23/17 11:22 Xylocaine 5% Top. Ointment TP 1 applic DAILY PRN Administration PAIN Loperamide HCl 4 mg 09/21/17 15:43 Imodium - PO Q6H PRN DIARRHEA Magnesium Citrate 300 ml 09/21/17 15:43 Citroma - PO Q48H PRN CONSTIPATION Magnesium Hydroxide 30 ml 09/21/17 15:43 Milk Of Magnesia - PO DAILY PRN CONSTIPATION Miscellaneous 1 each 09/22/17 22:00 09/23/17 23:51 Lidoderm Patch Removal MC Not Given DAILY@2200 [facility] Nicotine 14 mg 09/21/17 17:00 09/23/17 11:23 Nicoderm Patch - TD Not Given DAILY [facility] Nicotine Polacrilex 2 mg 09/21/17 15:43 09/22/17 22:10 Nicorette Gum - BC 2 mg Q2H PRN Administration NICOTINE REPLACEMENT RX Ondansetron HCl 4 mg 09/22/17 12:06 Zofran Odt - SL Q8H PRN NAUSEA AND/OR VOMITING Pantoprazole Sodium 40 mg 09/22/17 11:00 09/23/17 11:22 Protonix - PO 40 mg DAILY CHANG Administration Multivit/Folic Acid/Iron 1 tab 09/22/17 10:00 09/23/17 11:22 Vitamins (Sjr) - PO 1 tab DAILY CHANG Administration Pseudoephedrine/Triprolidine 1 combo 09/21/17 15:43 Actifed - PO TID PRN NASAL CONGESTION Quetiapine Fumarate 600 mg 09/24/17 22:00 Seroquel - PO HS CHANG Thiamine HCl 100 mg 09/21/17 22:00 09/23/17 22:16 Vitamin B1 - PO 100 mg HS CHANG Administration Zolpidem Tartrate 10 mg 09/21/17 22:00 09/23/17 22:16 Ambien - PO 09/24/17 21:59 10 mg HS PRN Administration INSOMNIA Medication(s) Change(s): Yes. Seroquel 600mg qhs ordered and ambien 10mg to be discontinued. Current Side Effect: No Lab tests ordered: No Lab tests reviewed: Yes Provider note:: Licensed Mortgage Loan Officer met with patient this morning concerning psychatric reconsultation. Pt. requesting an increase in his seroquel dose. Chart reviewed. Dr. Santo note read and appreciated. Pt. able to accept seroquel 500mg qhs with good effect last night. No oversedation noted. EkG reviewed and appreciated. As per pharmacy claims and previous records, patient takes seroquel 600mg qhs.Seroquel dose to be increased to 600mg qhs tonight and ambien 10mg qhs prn to be discontinued. Pt. agreeable with plan. Verbal consent given. Prescription for 30 day supply will be electronically sent to patient's pharmacy. Verbal consent given. Pt. aware of the benefits and side effects. Will continue to monitor. Total face to face time:: 25 Mental Status Exam - Mental Status Exam Alert and Oriented to: Time, Place, Person Cognitive Function: Good Patient Appearance: Well Groomed Mood: Hopeful, Euthymic Affect: Mood Congruent Patient Behavior: Appropriate, Cooperative Speech Pattern: Clear, Appropriate Voice Loudness: Normal Thought Process: Goal Oriented Thought Disorder: Not Present Hallucinations: Denies Suicidal Ideation: Denies Homicidal Ideation: Denies Insight/Judgement: Poor Sleep: Fair Appetite: Good Muscle strength/Tone: Normal Gait/Station: Other (Pt. ambulates with a cane.) Psychiatric Treatment Plan - Problem List (1) Drug-induced mood disorder Current Visit: Yes (2) Nicotine dependence Current Visit: Yes Qualifiers: Nicotine product type: cigarettes Substance use status: in withdrawal Qualified Code(s): F17.213 - Nicotine dependence, cigarettes, with withdrawal (3) MDD (major depressive disorder) Current Visit: Yes (4) Cocaine dependence, uncomplicated Current Visit: Yes (5) Alcohol dependence Current Visit: Yes
[2017-09-24] MEDS: DOCUSATE SODIUM 100 MG CAPSULE (FP) PO SCH ×2 (10:49→22:12)
[2017-09-24] MEDS: PANTOPRAZOLE 40 MG TABLET (FP) PO SCH (10:49)
[2017-09-24] MEDS: NICOTINE 14 MG/24 HOURS TOPICAL PATCH TD SCH (10:49)
[2017-09-24] MEDS: PRENATAL VITAMINS W/ FOLIC ACID TABLET (FP) PO SCH (10:49)
[2017-09-24] MEDS: BUDESONIDE/FORMETEROL FUMARATE 160/4.5 mcg INHALER IH SCH ×2 (10:49→22:14)
[2017-09-24] MEDS: CLOTRIMAZOLE 1% CREAM 15 GM TUBE TP SCH ×3 (10:50→22:55)
[2017-09-24] MEDS: LIDOCAINE 5% TOPICAL PATCH TP SCH (10:50)
[2017-09-24] MEDS: ALBUTEROL SO4 18 GM HFA INHALER IH PRN ×2 (10:53→22:14)
--- NOTE | 2017-09-24 10:56 | PN ---
S Progress Note (SOAP) Subjective: ALERT,IRRITABLE,ANXIOUS,INTERRUPTED SLEEP, Objective: 09/24/17 10:52 Vital Signs Temperature 97.5 F L 09/24/17 06:04 Pulse Rate 70 09/24/17 06:04 Respiratory Rate 16 09/24/17 06:04 Blood Pressure 131/86 09/24/17 06:04 O2 Sat by Pulse Oximetry (%) 09/24/17 10:53 Laboratory Last Values WBC 5.2 K/mm3 (4.0-10.0) D 09/22/17 06:20 RBC 4.42 M/mm3 (4.00-5.60) 09/22/17 06:20 Hgb 13.3 GM/dL (11.7-16.9) 09/22/17 06:20 Hct 41.1 % (35.4-49) 09/22/17 06:20 MCV 93.0 fl (80-96) 09/22/17 06:20 MCH 30.2 pg (25.7-33.7) 09/22/17 06:20 MCHC 32.4 g/dl (32.0-35.9) 09/22/17 06:20 RDW 13.8 % (11.9-15.9) 09/22/17 06:20 Plt Count 288 K/MM3 (134-434) D 09/22/17 06:20 MPV 7.9 fl (7.5-11.1) 09/22/17 06:20 Sodium 138 mmol/L (136-145) 09/22/17 06:20 Potassium 3.6 mmol/L (3.5-5.1) 09/22/17 06:20 Chloride 105 mmol/L (98-107) 09/22/17 06:20 Carbon Dioxide 25 mmol/L (21-32) 09/22/17 06:20 Anion Gap 8 (8-16) 09/22/17 06:20 BUN 22 mg/dL (7-18) H D 09/22/17 06:20 Creatinine 1.7 mg/dL (0.7-1.3) H D 09/22/17 06:20 Creat Clearance w eGFR 42.05 (>60) 09/22/17 06:20 Random Glucose 117 mg/dL (74-106) H D 09/22/17 06:20 Calcium 8.4 mg/dL (8.5-10.1) L 09/22/17 06:20 Total Bilirubin 0.6 mg/dL (0.2-1.0) 09/22/17 06:20 AST 16 U/L (15-37) D 09/22/17 06:20 ALT 11 U/L (12-78) L 09/22/17 06:20 Alkaline Phosphatase 93 U/L (45-117) 09/22/17 06:20 Total Protein 7.1 g/dl (6.4-8.2) D 09/22/17 06:20 Albumin 3.8 g/dl (3.4-5.0) D 09/22/17 06:20 Urine Color Mimi 09/21/17 21:00 Urine Appearance Cloudy 09/21/17 21:00 Urine pH 5.0 (5.0-8.0) 09/21/17 21:00 Ur Specific [place] 1.029 (1.001-1.035) 09/21/17 21:00 Urine Protein 2+ (NEGATIVE) H 09/21/17 21:00 Urine Glucose (UA) Negative (NEGATIVE) 09/21/17 21:00 Urine Ketones Trace (NEGATIVE) H 09/21/17 21:00 Urine Blood Negative (NEGATIVE) 09/21/17 21:00 Urine Nitrite Negative (NEGATIVE) 09/21/17 21:00 Urine Bilirubin 2.0 (NEGATIVE) 09/21/17 21:00 Urine Urobilinogen 4.0 e.u/dl mg/dL (0.2-1.0) 09/21/17 21:00 Ur Leukocyte Esterase Negative (NEGATIVE) 09/21/17 21:00 Urine WBC (Auto) 13 /hpf (3-5) 09/21/17 21:00 Urine RBC (Auto) 3 /hpf (0-3) 09/21/17 21:00 Hyaline Casts 44 /lpf 09/21/17 21:00 Granular Casts 128 /lpf 09/21/17 21:00 Urine Mucus Many 09/21/17 21:00 RPR Titer Nonreactive (NONREACTIVE) 09/22/17 06:20 Assessment: 09/24/17 10:54 WITHDRAWAL SYMPTOM ENCOURAGE ORAL FLUID REPEAT CMP TODAY Plan: CONTINUE DETOX,ENCOURAGE ORAL FLUID,REPEAT CMP TODAY,BGM MONITORING INITIAL GLUCOSE IS 117
[2017-09-24] MEDS: chlordiazePOXIDE HCL 25 MG CAPSULE PO PRN (14:11)
[2017-09-24 15:21] LABS: CHLORIDE 107 mmol/L (98-107); POTASSIUM 3.9 mmol/L (3.5-5.1); SODIUM 141 mmol/L (136-145)
[2017-09-24 15:34] LABS: ALK PHOS 80 U/L (45-117); ANION GAP 10 (8-16); BILIRUBIN,TOTAL 0.2 mg/dL (0.2-1.0); BLOOD UREA NITROGEN 17 mg/dL (7-18); CALCIUM 8.8 mg/dL (8.5-10.1); CO2 24 mmol/L (21-32); GLUCOSE,RANDOM 165 mg/dL (74-106); SGOT/AST 12 U/L (15-37); SGPT/ALT 11 U/L (12-78)
[2017-09-24] MEDS: chlordiazePOXIDE HCL 10 MG CAPSULE PO SCH ×2 (17:55→22:12)
[2017-09-24] MEDS ORDERED: QUEtiapine FUMARATE 300 MG TABLET PO SCH (22:00)
[2017-09-24] MEDS: THIAMINE HCL 100 MG TABLET (FP) PO SCH (22:12)
[2017-09-24] MEDS: LIDOCAINE PATCH REMOVAL MC SCH (22:15)
[2017-09-25] MEDS: chlordiazePOXIDE HCL 10 MG CAPSULE PO SCH (05:44)
[2017-09-25] MEDS: CYCLOBENZAPRINE HCL 10 MG TABLET (FP) PO SCH (05:44)
--- NOTE | 2017-09-25 08:30 | DS ---
[facility] Detox Discharge Summary Admission Date: 09/21/17 Discharge Date: 09/25/17 - History Present History: Alcohol Dependence, Cocaine Dependence Additional Comments: follow up with after care program as arrangement Pertinent Past History: old injuries both knees s/p surgery varicose vein left lrg ambulation with cane nicotine dependence major depressive disorder insomnia drug induced mood disorder - Physical Exam Results Vital Signs: Vital Signs Temperature 97.0 F L 09/25/17 06:13 Pulse Rate 82 09/25/17 06:13 Respiratory Rate 18 09/25/17 06:13 Blood Pressure 138/90 09/25/17 06:13 O2 Sat by Pulse Oximetry (%) Pertinent Admission Physical Exam Findings: withdrawal symptom and finding - Treatment Hospital Course: Detox Protocol Followed, Detoxed Safely, Responded well, Discharged Condition Good Patient has Accepted a Rehab Referral to: declined - Medication Discharge Medications: Ambulatory Orders Omeprazole [Prilosec (RX)] 40 mg PO DAILY #30 capsule.dr 01/02/15 Cyclobenzaprine HCl [Flexeril -] 10 mg PO TID 03/08/15 Lidocaine 5% Top. Ointment [Xylocaine 5% Top. Ointment -] 1 applic TP DAILY PRN 03/08/15 Docusate Sodium [Colace -] 100 mg PO BID #20 cap 03/21/17 Bupropion HCl [Wellbutrin Xl -] 300 mg PO DAILY #30 tab 03/22/17 hydrOXYzine PAMOATE [Vistaril -] 100 mg PO HS #30 tab 03/22/17 Ondansetron HCl [Zofran] 4 mg PO Q6H PRN 09/21/17 Albuterol Sulfate Inhaler - [Ventolin HFA Inhaler -] 2 puff IH Q4H PRN #1 inhaler 09/24/17 Budesonide/Formeterol Fumarate [SYMBICORT 160/4.5mcg -] 2 inh IH BID PRN #1 inhaler 09/24/17 Bupropion HCl [Wellbutrin Xl -] 300 mg PO DAILY #30 tab.sr.24h 09/24/17 Clotrimazole [Lotrimin -] 1 applic TP BID #1 tube 09/24/17 Quetiapine Fumarate [Seroquel -] 600 mg PO HS #60 tablet 09/24/17 - Diagnosis (1) Alcohol dependence with uncomplicated withdrawal Current Visit: Yes Status: Acute (2) Nicotine dependence Current Visit: Yes Status: Acute Qualifiers: Nicotine product type: cigarettes Substance use status: in withdrawal Qualified Code(s): F17.213 - Nicotine dependence, cigarettes, with withdrawal (3) Asthma Current Visit: Yes Status: Chronic (4) Cocaine dependence Current Visit: No Status: Deleted (5) Ambulates with cane Current Visit: Yes Status: Acute (6) History of knee problem Current Visit: Yes Status: Acute (7) Drug-induced mood disorder Current Visit: Yes Status: Acute (8) Insomnia Current Visit: Yes Status: Acute (9) MDD (major depressive disorder) Current Visit: Yes Status: Chronic - AMA Did Patient Leave Against Medical Advice: No
[2017-09-25 09:56] VITALS: BP 144/97; PULSE 86; TEMP 98.5
--- NOTE | 2017-09-25 13:36 | EKG ---
Test Reason : Blood Pressure : / mmHG Vent. Rate : 083 BPM Atrial Rate : 083 BPM P-R Int : 164 ms QRS Dur : 110 ms QT Int : 426 ms P-R-T Axes : 057 -29 036 degrees QTc Int : 500 ms NORMAL SINUS RHYTHM PROLONGED QT ABNORMAL ECG WHEN COMPARED WITH ECG OF 09-MAR-2017 21:06, NO SIGNIFICANT CHANGE WAS FOUND Confirmed by MD Kaufman Daniel ([id number]) on 09/25/2017 1:36:25 PM Referred By: Confirmed By:Chu Kaufman MD
== END 2017-09-25 09:48 | disposition home or self-care (01) | DRG 774 ==
LOC: YASAS 11:16 → Y6N 16:20
PROVIDERS: ADMIT Internal Medicine; ATTEND Internal Medicine
PROC: HZ2ZZZZ Detoxification Services for Substance Abuse Treatment (ICD-10-PCS; principal; 2017-09-21)
DX: F10.230 Alcohol dependence with withdrawal, uncomplicated (principal); F14.20 Cocaine dependence, uncomplicated; F17.210 Nicotine dependence, cigarettes, uncomplicated; F33.9 Major depressive disorder, recurrent, unspecified; F19.24 Other psychoactive substance dependence with psychoactive substance-induced mood disorder; G47.00 Insomnia, unspecified; D50.8 Other iron deficiency anemias; R26.89 Other abnormalities of gait and mobility; Z99.89 Dependence on other enabling machines and devices; J45.909 Unspecified asthma, uncomplicated
CPT/HCPCS: 36415; 80053; 81003; 81015; 82962; 85027; 86593; 93005; 93010